=== PATIENT | female | born 1995 | race Two or more races ===

== ENCOUNTER 2018-06-23 18:43 | Emergency (ER) | payer MEDICAID ==
[~2018-06-23] VITALS: Ht 157.5 cm; Wt 57.3 kg
[2018-06-23 18:54] VITALS: BP 109/68
== END 2018-06-23 20:31 | disposition home or self-care (01) ==
LOC: ED 19:29
DX: S05.12XA Contusion of eyeball and orbital tissues, left eye, initial encounter (principal); Y04.0XXA Assault by unarmed brawl or fight, initial encounter; Y93.89 Activity, other specified; Y92.89 Other specified places as the place of occurrence of the external cause; Y99.8 Other external cause status
CPT/HCPCS: 70486; 99284

== ENCOUNTER 2019-04-13 04:31 | Emergency (ER) | payer SELFPAY ==
[~2019-04-13] VITALS: Ht 157.5 cm; Wt 60.0 kg
[2019-04-13] MEDS ORDERED: SODIUM CHLORIDE 0.9% 1,000ML IVBOLUS ONE (05:30)
[2019-04-13 05:52] LABS: BASOPHILS # (AUTO) 0.03 x10^3/uL (0-0.1); BASOPHILS % (AUTO) 0 % (0-1); EOSINOPHILS # (AUTO) 0.01 x10^3/uL (0-0.4); EOSINOPHILS % (AUTO) 0 % (1-7); LYMPHOCYTES # (AUTO) 0.49 x10^3/uL (1-3.4); LYMPHOCYTES % (AUTO) 7 % (22-44); MD NO; MEAN CORPUSCULAR HEMOGLOBIN 30.7 pg (27.0-34.8); MEAN CORPUSCULAR HGB CONC 32.8 g/dL (32.4-35.8); MEAN CORPUSCULAR VOLUME 93.6 fL (80-100); MEAN PLATELET VOLUME 7.4 fL (7.4-10.4); MONOCYTES # (AUTO) 0.55 x10^3/uL (0.2-0.8); MONOCYTES % (AUTO) 8 % (2-9); NEUTROPHILS # (AUTO) 5.98 x10^3/uL (1.8-6.8); NEUTROPHILS % (AUTO) 85 % (42-75); PLATELET COUNT 225 x10^3/uL (130-400); RED CELL DISTRIBUTION WIDTH 13.4 % (9.6-15.2)
[2019-04-13 06:02] LABS: ALBUMIN 4.1 g/dL (3.4-5.0); ANION GAP 5 mmol/L (5-15); CALCIUM 8.4 mg/dL (8.5-10.1); CHLORIDE 113 mmol/L (98-107)
[2019-04-13 06:06] LABS: ALANINE AMINOTRANSFERASE 24 U/L (12-78); ALKALINE PHOSPHATASE 41 U/L (45-117); BILIRUBIN,TOTAL 0.5 mg/dL (0.2-1.0); CREATININE 0.77 mg/dL (0.55-1.02)
[2019-04-13 06:30] VITALS: BP 97/60
--- NOTE | 2019-04-13 06:31 | NUR ---
Pt found passed out on bathroom floor at [facility], incontinent of urine and vomit on front, SAADSA brings in with no interventions, did do a blood sugar which was 154
--- NOTE | 2019-04-13 06:31 | NUR ---
pt still remains difficulty to wake up. pt minimally responsive and when asked if she knows where she is, pt mutters uncomprehensibly.
--- NOTE | 2019-04-13 06:52 | NUR ---
report to andres lemon
--- NOTE | 2019-04-13 07:10 | NUR ---
ASSUMED CARE. PT SLEEPING
--- NOTE | 2019-04-13 08:02 | NUR ---
breathing even and unlabored, continue to monitor
--- NOTE | 2019-04-13 08:49 | NUR ---
pt awake and teary, not knowing where she is. oriented her to situation and reassured her she is safe. pt attempting to arrange for ride. breakfast tray provided.
--- NOTE | 2019-04-13 09:08 | NUR ---
upon return to room with discharge papers pt not there
== END 2019-04-13 09:25 | disposition home or self-care (01) ==
LOC: ED 05:48
DX: F10.220 Alcohol dependence with intoxication, uncomplicated (principal); R11.10 Vomiting, unspecified; Y90.0 Blood alcohol level of less than 20 mg/100 ml
CPT/HCPCS: 36415; 80053; 80307; 85025; 96360; 99283; J7030